=== PATIENT | male | born 1995 ===

== ENCOUNTER 2023-11-18 20:35 | Emergency (ER) | payer OTHER ==
[2023-11-18] MEDS ORDERED: OLANZapine 10 MG TAB PO ONE (21:00)
[2023-11-18] MEDS ORDERED: LITHIUM CARBONATE 300 MG TABCR PO ONE (21:00)
[2023-11-18 21:29] VITALS: BP 132/80
== END 2023-11-18 23:08 | disposition home or self-care (01) ==
LOC: ED 20:35
DX: Z04.41 Encounter for examination and observation following alleged adult rape (principal); F43.10 Post-traumatic stress disorder, unspecified; F20.9 Schizophrenia, unspecified
CPT/HCPCS: 99283; A9270